=== PATIENT | male | born 1985 | race Two or more races ===

== ENCOUNTER 2016-09-28 15:28 | Emergency (ER) | payer OTHER ==
[~2016-09-28] VITALS: Ht 190.5 cm; Wt 111.9 kg
[~2016-09-28 15:28] MED LIST: ATIVAN1 MG; DIVALPROEX SOD500 MG PO; Depakote PO; LANTUS 3 M100 UNITS1 SC; METFORMIN HCL1000 M1 PO; METFORMIN HCL500 MG PO; NOVOLOG PE100 UNITS/ SC; RELION CONFIRM MC; STAVZOR500 MG PO; TRILEPTAL600 MG PO; Zestril,Prinivil PO
[2016-09-28 15:59] LABS: HEMATOCRIT 41.7 % (38.0-50.0); MCH 27.9 PG (29.0-34.0); MCHC 33.6 G/DL (30.0-36.0); MCV 83.2 FL (86-99); MEAN PLAT.VOLUME 9.9 uM^3 (9.0-12.4); PLATELET COUNT 212 K/uL (156-360); RBC DIS.WIDTH-CV 11.9 % (11.8-14.6); RBC DIS.WIDTH-SD 35.7 % (39-53); RED BLOOD COUNT 5.01 M/uL (4.00-5.50); WHITE BLOOD COUNT 8.2 K/uL (4.1-10.2)
[2016-09-28 16:10] LABS: CHLORIDE 101 mEq/L (99-109); POTASSIUM 4.3 mEq/L (3.7-5.4); SODIUM 137 mEq/L (136-147)
[2016-09-28 16:12] LABS: GLUCOSE 234 mg/dL (70-99)
[2016-09-28 16:13] LABS: ANION GAP 20 MEQ/L (2-14)
[2016-09-28 16:15] LABS: GFR ESTIMATE (CALCULATED) > 59 mL/min/
[2016-09-28 16:16] LABS: UREA NITROGEN (BUN) 9 mg/dL (9-23)
[2016-09-28 18:14] VITALS: BP 117/70
== END 2016-09-28 18:25 | disposition home or self-care (01) ==
LOC: EME → EDBD 15:28 → EME 15:28
PROVIDERS: Emergency Medicine
DX: G40.909 Epilepsy, unspecified, not intractable, without status epilepticus (principal); T42.6X6A Underdosing of other antiepileptic and sedative-hypnotic drugs, initial encounter; E11.9 Type 2 diabetes mellitus without complications; Z91.128 Patient's intentional underdosing of medication regimen for other reason
CPT/HCPCS: 80048; 85027; 99281; 99285; J2060; J2250; J7030

== ENCOUNTER 2016-10-26 14:14 | Emergency (ER) | payer OTHER ==
[~2016-10-26] VITALS: Ht 190.5 cm; Wt 116.3 kg
[2016-10-26 15:00] LABS: BASOPHIL COUNT 0.1 K/uL (0-0.1); EOSINOPHIL (%) 2.4 % (0-5); EOSINOPHIL COUNT 0.2 K/uL (0-0.3); HEMATOCRIT 37.4 % (38.0-50.0); IMMATURE GRANULOCYTE (%) 0.3 % (0.0-0.7); LYMPHOCYTE COUNT 3.1 K/uL (1.0-2.8); MCH 28.1 PG (29.0-34.0); MCHC 34.5 G/DL (30.0-36.0); MCV 81.5 FL (86-99); MEAN PLAT.VOLUME 10.3 uM^3 (9.0-12.4); MONOCYTE (%) 7.9 % (3-12); MONOCYTE COUNT 0.6 K/uL (0-0.8); NEUTROPHIL (%) 50.6 % (45-76); PLATELET COUNT 192 K/uL (156-360); RBC DIS.WIDTH-CV 11.9 % (11.8-14.6); RBC DIS.WIDTH-SD 34.6 % (39-53); RED BLOOD COUNT 4.59 M/uL (4.00-5.50)
[2016-10-26 15:11] LABS: CHLORIDE 102 mEq/L (99-109); POTASSIUM 3.5 mEq/L (3.7-5.4); SODIUM 135 mEq/L (136-147)
[2016-10-26 15:12] LABS: D-DIMER ELISA 0.17 mg/L FEU (< 0.57)
[2016-10-26 15:13] LABS: GLUCOSE 314 mg/dL (70-99)
[2016-10-26 15:14] LABS: ANION GAP 11 MEQ/L (2-14)
[2016-10-26 15:16] LABS: GFR ESTIMATE (CALCULATED) > 59 mL/min/
[2016-10-26 15:17] LABS: UREA NITROGEN (BUN) 8 mg/dL (9-23)
[2016-10-26 15:21] LABS: TROP-I INTERPRETATION NEGATIVE; TROPONIN-I < 0.01 ng/mL (0.0-0.30)
[2016-10-26 17:02] VITALS: BP 109/78
== END 2016-10-26 17:03 | disposition home or self-care (01) ==
LOC: EME 14:14
PROVIDERS: Emergency Medicine
DX: R07.9 Chest pain, unspecified (principal); E11.65 Type 2 diabetes mellitus with hyperglycemia; T38.3X6A Underdosing of insulin and oral hypoglycemic [antidiabetic] drugs, initial encounter; Z91.128 Patient's intentional underdosing of medication regimen for other reason; Z88.6 Allergy status to analgesic agent; Z87.891 Personal history of nicotine dependence
CPT/HCPCS: 71020; 80048; 80164; 84484; 85025; 85379; 93005; 99281; 99283

== ENCOUNTER 2016-11-07 10:52 | Day surgery (SDC) | payer OTHER ==
[2016-11-07] MEDS ORDERED: TOUJEO SOL300 UNIT/1 SC (12:30)
[2016-11-07] MEDS ORDERED: LAMICTAL200 MG PO (12:31)
[2016-11-07] MEDS ORDERED: LO-DOSE ASPIRIN81 M2 PO (12:31)
[2016-11-07 12:36] LABS: POINT-OF-CARE METER ID UU13113696
[2016-11-07 15:21] LABS: POINT-OF-CARE METER ID UU13113819
[2016-11-07 16:47] LABS: POINT-OF-CARE METER ID UU13113819
== END 2016-11-07 19:40 | disposition home or self-care (01) ==
LOC: CATH 10:52
PROVIDERS: Internal Medicine Cardiovascular Disease
DX: R07.89 Other chest pain (principal); R42 Dizziness and giddiness; E10.8 Type 1 diabetes mellitus with unspecified complications; Z68.33 Body mass index [BMI] 33.0-33.9, adult; E66.9 Obesity, unspecified; G40.909 Epilepsy, unspecified, not intractable, without status epilepticus; Z87.891 Personal history of nicotine dependence; Z79.82 Long term (current) use of aspirin; Z79.4 Long term (current) use of insulin
CPT/HCPCS: 82948; C1769; C1887; J1644; J1815; J2250; J3010